=== PATIENT | female | born 1955 | race American Indian/Alaskan Native ===

== ENCOUNTER 2021-10-19 21:25 | Emergency (ER) | payer MEDICARE ==
[2021-10-19 22:47] LABS: Amphetamine Screen,Urine PRESUMPTIVE NEGATIVE; Benzodiazepines Screen,Urine PRESUMPTIVE NEGATIVE; Cannabinoid Screen,Urine PRESUMPTIVE POSITIVE; Cocaine Screen,Urine PRESUMPTIVE NEGATIVE; Methadone Screen,Urine PRESUMPTIVE NEGATIVE; Opiate Screen,Urine PRESUMPTIVE NEGATIVE
[2021-10-19 23:04] LABS: Bacteria,Urine 1+ /HPF (Negative); Mucus,Urine FEW /HPF
[2021-10-19 23:11] LABS: Color,Urine Yellow (Yellow)
[2021-10-19 23:12] LABS: Bilirubin,Urine Negative (Negative); Blood,Urine Negative (Negative); Protein,Urine <15 mg/dL mg/dL (Negative); Urobilinogen,Urine < 2.0 mg/dL (<2.0)
[2021-10-20 00:23] LABS: Blood Urea Nitrogen 15 mg/dL (7-17); Calcium 9.7 mg/dL (8.4-10.2); Hemolysis Index 10
[2021-10-20 00:26] LABS: BUN/Creatinine Ratio 21
[2021-10-20 00:28] LABS: Basophils % (Auto) 0.4 % (0.0-1.8); Eosinophils # (Auto) 0.3 K/mm3 (0.0-0.4); Hematocrit 37.8 % (30.3-42.9); Hemoglobin 12.6 gm/dl (10.1-14.3); Lymphocytes # (Auto) 3.6 K/mm3 (1.2-5.4); Lymphocytes % (Auto) 50.7 % (13.4-35.0); Mean Corpuscular HGB Conc 33 % (30-34); Mean Corpuscular Volume 89 fl (79-97); Monocytes # (Auto) 0.4 K/mm3 (0.0-0.8); Monocytes % (Auto) 6.2 % (0.0-7.3); Platelet Count 270 K/mm3 (140-440); Red Blood Count 4.26 M/mm3 (3.65-5.03); Red Cell Distribution Width 13.4 % (13.2-15.2)
--- NOTE | 2021-10-20 08:17 | Emergency Department Report ---
ED General Adult HPI - General Chief complaint: Psych Stated complaint: MENTAL HEALTH PUI?: No Time Seen by Provider: 10/20/21 08:15 Source: patient Mode of arrival: Ambulatory Limitations: No Limitations - History of Present Illness Initial comments: MICROCHIP IN LT LEG, STATES THAT THE DR WHO PUT IT IN THERE IS INSERTING MEDIC ATION INTO HER BODY. STATES THAT IT STARTED APROX 4 MONTHS AGO. -: month(s) Location: chest Radiation: non-radiation Consistency: intermittent Improves with: none Worsens with: none Associated Symptoms: chest pain. denies: denies other symptoms, confusion Treatments Prior to Arrival: none - Related Data Allergies Allergy/AdvReac Type Severity Reaction Status Date / Time peach Allergy Unknown Verified 10/19/21 22:04 peanut Allergy Unknown Verified 10/19/21 22:04 ED Review of Systems ROS: Stated complaint: MENTAL HEALTH Other details as noted in HPI Constitutional: denies: chills, fever Eyes: denies: eye pain, eye discharge, vision change ENT: denies: ear pain, throat pain Respiratory: denies: cough, shortness of breath, wheezing Cardiovascular: denies: chest pain, palpitations Endocrine: no symptoms reported Gastrointestinal: denies: abdominal pain, nausea, diarrhea Genitourinary: denies: urgency, dysuria, discharge Musculoskeletal: denies: back pain, joint swelling, arthralgia Skin: denies: rash, lesions Neurological: denies: headache, weakness, paresthesias Psychiatric: denies: anxiety, depression Hematological/Lymphatic: denies: easy bleeding, easy bruising ED Past Medical Hx - Past Medical History Previous Medical History?: No Hx Hypertension: No ED Physical Exam - General Limitations: No Limitations General appearance: alert, in no apparent distress - Head Head exam: Present: atraumatic, normocephalic - Eye Eye exam: Present: normal appearance - ENT ENT exam: Present: mucous membranes moist - Neck Neck exam: Present: normal inspection - Respiratory Respiratory exam: Present: normal lung sounds bilaterally. Absent: respiratory distress - Cardiovascular Cardiovascular Exam: Present: regular rate, normal rhythm. Absent: systolic mu rmur, diastolic murmur, rubs, gallop - GI/Abdominal GI/Abdominal exam: Present: soft, normal bowel sounds - Extremities Exam Extremities exam: Present: normal inspection - Back Exam Back exam: Present: normal inspection - Neurological Exam Neurological exam: Present: alert, oriented X3 - Psychiatric Psychiatric exam: Present: normal affect, normal mood - Skin Skin exam: Present: warm, dry, intact, normal color. Absent: rash ED Course Vital Signs 10/19/21 10/20/21 22:04 10:40 Temperature 98.3 F Pulse Rate 70 Respiratory 18 20 Rate Blood Pressure 159/79 O2 Sat by Pulse 99 99 Oximetry ED Medical Decision Making - Lab Data Result diagrams: 10/19/21 23:32 10/20/21 08:26 - Medical Decision Making Patient was managed independently by the mid level below , I was available for consult but i wasn't directly involved in the care of this patient Critical care attestation.: If time is entered above; I have spent that time in minutes in the direct care of this critically ill patient, excluding procedure time. ED Disposition Clinical Impression: Psychosis Disposition: [address] [place] [address] Is pt being admited?: No Does the pt Need Aspirin: No Condition: Stable
[2021-10-20 10:08] LABS: BUN/Creatinine Ratio 16; Blood Urea Nitrogen 14 mg/dL (7-17); Calcium 9.5 mg/dL (8.4-10.2); Hemolysis Index 6
--- NOTE | 2021-10-20 10:10 | History and Physical Report ---
GP History & Physical - History of Present Illness Date of admission: 10/19/21 Date of Examination: 10/20/21 Reason for Admission: Danger to self, Impaired reality testing, Failure of Outpatient Treatment, Severe anxiety/depression History of Present Illness: The patient was seen today. She is a/o x 3. She is very delusional. The patient says she had surgery on her left ankle about seven months ago in [place], [place]. The patient says after that something started going up her ankle all the way up to her chest. She says "I believe the doctor put a microchip in me." She then pulls her shirt down and shows me her chest. She says "you can feel it right here, it's hard." There's no obvious sign of deformity on the patient's chest. I feel it and tell her that's her rib cage. She says "no it's not." The patient then says "I'm not crazy. I'm retired from the [employer]." The patient says "they are all on my back now." She turns around, bends down and shows me her back. I ask the patient who are the "they she keeps talking about." She says "I don't know. I guess whoever doing this." The patient says "they have even started messing with my private part taking it out and placing it all over my body." The patient denies SI/HI or hallucinations. She denies any psych history or being on any psych meds. She denies any illicit drug use. PAST PSYCHIATRIC HISTORY: Diagnoses: Denies Suicide attempts or Self-harm behavior: Denies Prior psychiatric hospitalizations: Denies Substance Abuse history: Denies Previous psychiatric medications tried: Denies Outpatient treatment: Denies PAST MEDICAL HISTORY: None reported Family Psychiatric History: None reported or documented SOCIAL HISTORY Marital Status: Living Arrangements: alone Employment Status: disabled Access to guns/weapons: Denies Education: college History of Abuse:Denies Legal History: Denies REVIEW OF SYSTEMS Constitutional: Negative for weight loss ENT: Negative for stridor Respiratory: Negative for cough or hemoptysis All other systems reviewed and are negative MENTAL STATUS EXAMINATION General Appearance and Behavior: Age appropriate, good hygiene, wearing appropriate clothes, cooperative Cooperation: Cooperative Psychomotor Behavior: Psychomotor normal Mood: okay Affect and affective range: congruent with stated mood Thought Process: illogical Thought Content: delusional Speech: Normal tone and pace Suicidal Ideation: Denies Homicidal Ideation: Denies Hallucinations: Visual Delusions: Yes Impulse Control: Limited Insight and Judgment: poor insight and poor judgment Memory: Limited Attention: distracted Orientation: a/o Assessment (1) Delusional Disorder Current Visit: Yes Status: Acute Treatment Plan 1013 Abilify 5mg po daily Trazodne 50mg po qhs Medical: per primary Sitter: defer to primary Disposition: Recommend acute psychiatric inpatient treatment Will follow. Thanks Case staffed with Dr. Keen Legal Status: Voluntary Reaction to Hospitalization: Accepting Medications and Allergies Allergies Allergy/AdvReac Type Severity Reaction Status Date / Time peach Allergy Unknown Verified 10/19/21 22:04 peanut Allergy Unknown Verified 10/19/21 22:04 Results - Results Labs/Vitals: Laboratory Last Values WBC 7.1 K/mm3 (4.5-11.0) 10/19/21 23:32 RBC 4.26 M/mm3 (3.65-5.03) 10/19/21 23:32 Hgb 12.6 gm/dl (10.1-14.3) 10/19/21 23:32 Hct 37.8 % (30.3-42.9) 10/19/21 23:32 MCV 89 fl (79-97) 10/19/21 23:32 MCH 30 pg (28-32) 10/19/21 23:32 MCHC 33 % (30-34) 10/19/21 23:32 RDW 13.4 % (13.2-15.2) 10/19/21 23:32 Plt Count 270 K/mm3 (140-440) 10/19/21 23:32 Lymph % (Auto) 50.7 % (13.4-35.0) H 10/19/21 23:32 [place] % (Auto) 6.2 % (0.0-7.3) 10/19/21 23:32 Eos % (Auto) 4.0 % (0.0-4.3) 10/19/21 23:32 Baso % (Auto) 0.4 % (0.0-1.8) 10/19/21 23:32 Lymph # (Auto) 3.6 K/mm3 (1.2-5.4) 10/19/21 23:32 [place] # (Auto) 0.4 K/mm3 (0.0-0.8) 10/19/21 23:32 Eos # (Auto) 0.3 K/mm3 (0.0-0.4) 10/19/21 23:32 Baso # (Auto) 0.0 K/mm3 (0.0-0.1) 10/19/21 23:32 Seg Neutrophils % 38.7 % (40.0-70.0) L 10/19/21 23:32 Seg Neutrophils # 2.7 K/mm3 (1.8-7.7) 10/19/21 23:32 Sodium 140 mmol/L (137-145) 10/19/21 23:32 Potassium 4.7 mmol/L (3.6-5.0) 10/19/21 23:32 Chloride 102.1 mmol/L (98-107) 10/19/21 23:32 Carbon Dioxide 28 mmol/L (22-30) 10/19/21 23:32 Anion Gap 15 mmol/L 10/19/21 23:32 BUN 15 mg/dL (7-17) 10/19/21 23:32 Creatinine 0.7 mg/dL (0.6-1.2) 10/19/21 23:32 Estimated GFR > 60 ml/min 10/19/21 23:32 BUN/Creatinine Ratio 21 % 10/19/21 23:32 Glucose 89 mg/dL (65-100) 10/19/21 23:32 Calcium 9.7 mg/dL (8.4-10.2) 10/19/21 23:32 Urine Color Yellow (Yellow) 10/19/21 Unknown Urine Turbidity Clear (Clear) 10/19/21 Unknown Urine pH 6.0 (5.0-7.0) 10/19/21 Unknown Ur Specific [place] 1.020 (1.003-1.030) 10/19/21 Unknown Urine Protein <15 mg/dl mg/dL (Negative) 10/19/21 Unknown Urine Glucose (UA) Negative mg/dL (Negative) 10/19/21 Unknown Urine Ketones Negative mg/dL (Negative) 10/19/21 Unknown Urine Blood Negative (Negative) 10/19/21 Unknown Urine Nitrite Negative (Negative) 10/19/21 Unknown Ur Reducing Substances Not Reportable 10/19/21 Unknown Urine Bilirubin Negative (Negative) 10/19/21 Unknown Urine Ictotest Not Reportable 10/19/21 Unknown Urine Urobilinogen < 2.0 mg/dL (<2.0) 10/19/21 Unknown Ur Leukocyte Esterase Negative (Negative) 10/19/21 Unknown Urine WBC (Auto) 4.0 /HPF (0.0-6.0) 10/19/21 Unknown Urine RBC (Auto) 4.0 /HPF (0.0-6.0) 10/19/21 Unknown U Epithel Cells (Auto) 2.0 /HPF (0-13.0) 10/19/21 Unknown Urine Bacteria (Auto) 1+ /HPF (Negative) 10/19/21 Unknown Urine Mucus Few /HPF 10/19/21 Unknown Urine Yeast (Budding) Few /HPF 10/19/21 Unknown Salicylates < 0.3 mg/dL (2.8-20.0) L 10/19/21 23:32 Urine Opiates Screen Presumptive negative 10/19/21 Unknown Urine Methadone Screen Presumptive negative 10/19/21 Unknown Acetaminophen 5.0 ug/mL (10.0-30.0) L 10/19/21 23:32 Ur Barbiturates Screen Presumptive negative 10/19/21 Unknown Ur Phencyclidine Scrn Presumptive negative 10/19/21 Unknown Ur Amphetamines Screen Presumptive negative 10/19/21 Unknown U Benzodiazepines Scrn Presumptive negative 10/19/21 Unknown Urine Cocaine Screen Presumptive negative 10/19/21 Unknown U Marijuana (THC) Screen Presumptive positive 10/19/21 Unknown Drugs of Abuse Note Disclamer 10/19/21 Unknown Plasma/Serum Alcohol < 0.01 % (0-0.07) 10/19/21 23:32 Last Vital Signs Temp 98.3 F 10/19/21 22:04 Pulse 70 10/19/21 22:04 Resp 18 10/19/21 22:04 BP 159/79 10/19/21 22:04 Pulse Ox 99 10/19/21 22:04 Physical Examination - Constitutional Vitals: Vital Signs Temp Pulse Resp BP Pulse Ox 98.3 F 70 18 159/79 99 10/19/21 22:04 10/19/21 22:04 10/19/21 22:04 10/19/21 22:04 10/19/21 22:04 Temperature -Last 24 Hours Temperature 98.3 F Mental Status Exam - Vital signs Last Vital Signs Temp 98.3 F 10/19/21 22:04 Pulse 70 10/19/21 22:04 Resp 18 10/19/21 22:04 BP 159/79 10/19/21 22:04 Pulse Ox 99 10/19/21 22:04 Physician Certification - Certification Statement Physician Certification Statement: This is an acknowledgement statement that VIRGEN KOENIG is a 66 year old F who requires inpatient psychiatric admission for treatment which could reasonably be expected to improve the patient's condition for Estimated period of time patient will need to remain in the hospital: [ ] Plan for post-hospital care: [ ]
[2021-10-20] MEDS ORDERED: ARIPiprazole 5 MG TAB PO SCH (11:00)
--- NOTE | 2021-10-20 12:49 | Electrocardiograph Report ---
[facility] Test Date: 2021-10-20 Test Time: 08:06:42 Pat Name: VIRGEN KOENIG Department: Room: Gender: F Notereader: MARINO : 1955 Requested By: ALBER COOPER Order Number: [id number] Reading MD: Chris Pineda Measurements Intervals [place] Rate: 86 P: 59 WI: 137 QRS: -27 QRSD: 86 T: 13 QT: 354 QTc: 423 Interpretive Statements Sinus rhythm Left ventricular hypertrophy No previous ECG available for comparison Electronically Signed On 10-20-2021 12:49:23 EDT by Chris Pineda
[2021-10-20 14:39] VITALS: BP 142/78
[2021-10-20] MEDS ORDERED: traZODone 50 MG TAB PO SCH (22:00)
== END 2021-10-20 15:56 ==
LOC: ED 21:25
DX: F29 Unspecified psychosis not due to a substance or known physiological condition (principal); Z20.822 Contact with and (suspected) exposure to COVID-19; Z79.899 Other long term (current) drug therapy
CPT/HCPCS: 36415; 80048; 80307; 81001; 85025; 93005; 99285; U0003; 80320; G0480

== ENCOUNTER 2021-10-20 18:23 | Emergency (ER) | payer MEDICARE ==
--- NOTE | 2021-10-20 21:13 | Emergency Department Report ---
HPI - General Chief Complaint: Chest Pain PUI?: No Time Seen by Provider: 10/20/21 20:43 - HPI HPI: 66-year-old female, brought in via [facility]3 from [facility] for evaluation of chest pain. Of note patient observed to be sleeping in examination room. She wakes stating she had "soreness" in her chest which has been ongoing for a week. She reports the pain only occurs with movement of her chest wall and also with touching her chest. She states she mentioned it to the provider yesterday when she was seen here in the ER "but they did not do anything about it." She states she also had some mild shortness of breath as well but both of these have resolved. She denies any falls or chest wall trauma. No nausea vomiting fevers or chills. No pain or swelling in her ankles or legs although patient reports that she has had ankle surgery approximately 4 months ago on her left ankle. Pain currently 2 out of 10. ED Past Medical Hx - Past Medical History Hx Hypertension: No ED Review of Systems ROS: Stated complaint: CHEST PAIN Other details as noted in HPI Comment: All other systems reviewed and negative Physical Exam - Physical Exam Vital Signs: Vital Signs 10/20/21 20:18 Temperature 98.6 F Pulse Rate 84 Respiratory 16 Rate Blood Pressure 200/100 [Right] O2 Sat by Pulse 98 Oximetry General: Gen: pt is well appearing, no acute distress, asleep on stretcher, comfortable appearing, in no acute distress HEENT: Normocephalic atraumatic pupils equally round and reactive to light extraocular muscles intact sclera anicteric Neck: Full range of motion, no midline spinal tenderness palpation, no JVD, no carotid bruits, no nuchal rigidity CVS: S1-S2 regular rate and rhythm with no gallops rubs or murmurs, mild reproducible left anterior chest wall tenderness palpation Pulmonary: Clear to auscultation bilaterally, no wheezes rales or rhonchi, Abdomen: Soft nondistended nontender no guarding or rebound tenderness, no palpable deformities or step-offs, normal active bowel sounds, no hepatosplenomegaly, no pulsatile masses : Deferred Extremities: No cyanosis no clubbing no edema, intact distal peripheral pulses, Integumentary: Skin normal, no petechia no purpura no abscess no lacerations no evidence of trauma no evidence of infection Neuro: Patient is awake alert and oriented to person place time situation, mentating well, cranial nerves II through XII intact, no focal neurodeficits, sensation grossly tact Psych: Calm cooperative, mood affect normal ED Course Vital Signs 10/20/21 20:18 Temperature 98.6 F Pulse Rate 84 Respiratory 16 Rate Blood Pressure 200/100 [Right] O2 Sat by Pulse 98 Oximetry - Reevaluation(s) Reevaluation #1: 10/20/21 21:13 Patient is comfortable and well-appearing, no acute distress ED Medical Decision Making - Lab Data Result diagrams: 10/20/21 21:20 10/20/21 21:20 - EKG Data -: EKG Interpreted by Me EKG shows normal: sinus rhythm Rate: normal - EKG Data When compared to previous EKG there are: no significant change 10/20/21 22:47 EKG interpreted by me: Ventricular rate 67 bpm. P waves are present and proceed every QRS complex. Intervals normal. No ST segment depressions or elevations. No T wave flattening or inversions. No ectopic. No arrhythmia. Normal axis. Sinus rhythm with left ventricular hypertrophy. - Radiology Data Radiology results: report reviewed - Medical Decision Making 66-year-old female, currently under 1013 psychiatric admission, brought in from psychiatric facility for evaluation of chest pain. VSS. EKG and labs grossly unremarkable. Patient's heart score is 2 (based on age). She ambulated here with normal steady gait. She has no evolving symptoms. Chest x-ray demonstrates no acute pathology. Well's score is zero. She is asymptomatic at the time of discharge. Patient is deemed medically clear no further emergent work-up warranted at this time. Patient discharged back to care of psychiatric facility for further management. Critical Care Time: No (,) Critical care attestation.: If time is entered above; I have spent that time in minutes in the direct care of this critically ill patient, excluding procedure time. ED Disposition Clinical Impression: Chest pain Disposition: 01 HOME / SELF CARE / HOMELESS Is pt being admited?: No Does the pt Need Aspirin: No Condition: Stable Instructions: Nonspecific Chest Pain, Adult Additional Instructions: The cause of your chest pain is unclear. You may take acetaminophen as needed for pain. If you have no allergies or contraindications, you may also take low- dose ibuprofen for additional pain management. Please observe your symptoms very carefully. Return to the nearest emergency department as soon as possible if you develop severe worsening chest pain, shortness of breath, difficulty breathing, palpitations, lightheadedness or dizziness, or if any other new worrisome symptoms develop Referrals: XAVIER OLIVER MD [Primary Care Provider] - 3-5 Days
--- NOTE | 2021-10-20 21:26 | XRay Report ---
CHEST 1 VIEW INDICATION: chest pain. COMPARISON: None. FINDINGS: Support devices: None. Heart: Normal. Lungs/Pleura: No acute pulmonary or pleural findings. IMPRESSION: 1. No acute findings. Signer Name: Carlos Munson MD Signed: 10/20/2021 9:22 PM Workstation Name: [id number]
[2021-10-20 21:33] LABS: Hematocrit 37.6 % (30.3-42.9); Hemoglobin 12.7 gm/dl (10.1-14.3); Mean Corpuscular HGB Conc 34 % (30-34); Mean Corpuscular Volume 88 fl (79-97); Platelet Count 258 K/mm3 (140-440); Red Blood Count 4.26 M/mm3 (3.65-5.03); Red Cell Distribution Width 13.3 % (13.2-15.2)
[2021-10-20 21:59] LABS: Alanine Aminotransferase 14 units/L (7-56); Albumin 4.5 g/dL (3.9-5); Blood Urea Nitrogen 12 mg/dL (7-17); Calcium 9.9 mg/dL (8.4-10.2); Hemolysis Index 1
[2021-10-20 22:01] LABS: BUN/Creatinine Ratio 17
[2021-10-21 08:36] VITALS: BP 117/62
--- NOTE | 2021-10-21 13:15 | Electrocardiograph Report ---
[facility] Test Date: 2021-10-20 Test Time: 22:00:54 Pat Name: VIRGEN KOENIG Department: Room: Gender: F Project Production Engineer: tray : 1955 Requested By: JAIDA MOSER Order Number: [id number] Reading MD: Chris Pineda Measurements Intervals [place] Rate: 79 P: 50 GA: 147 QRS: -16 QRSD: 85 T: 41 QT: 372 QTc: 427 Interpretive Statements Sinus rhythm Left ventricular hypertrophy Compared to ECG 10/20/2021 08:06:42 No significant changes Electronically Signed On 10-21-2021 13:15:20 EDT by Chris Pineda
== END 2021-10-21 08:36 | disposition home or self-care (01) ==
LOC: ED 18:23
DX: R07.9 Chest pain, unspecified (principal)
CPT/HCPCS: 36415; 71045; 80053; 83880; 84484; 85027; 93005; 99284